=== PATIENT | female | born 1975 | race Caucasian/White ===

== ENCOUNTER 2019-01-14 09:39 | Day surgery (SDC) | payer OTHER ==
[2019-01-11 14:46] VITALS: BMI 35.0
--- NOTE | 2019-01-14 10:35 | HP ---
Admitting History and Physical - Admission Chief Complaint: Retained IUD History of Present Illness: 43yo P3 here for removal of IUD after two unsuccessful removal attempts in the office last week. Patient presented with pelvic pain and ultrasound revealed a IUD in improper position. Desired removal of IUD, however, strings frayed and broke during initial attempt. Desires replacement of another IUD in the future History Source: Patient Limitations to Obtaining History: No Limitations - Past Medical History [employer]: No: Alzheimer's, CVA, Dementia, Migraine, Multiple Sclerosis, Peripheral Neuropathy, Parkinson's, Seizure, Syncope, TIA, Vertigo, Other Cardiovascular: No: AFIB, Aneurysm, Aortic Insufficiency, Aortic Stenosis, CAD, CHF, Deep Vein Thrombosis, HTN, Hyperlipdemia, [place], Mitral Insufficiency, Mitral Stenosis, Murmur, Pulmonary Hypertension, Other Pulmonary: Yes: Asthma (rx inhaler. early pregn frequent episodes) Gastrointestinal: Yes: Constipation ...LMP: 12/21/18 ...: No ...Para: 3 Heme/Onc: No: Anemia, B12 Deficiency, Bleeding Disorder, Cancer, Current Chemotherapy, Current Radiation Therapy, Hemochromatosis, Hypercoaguable State, Myeloproliferative Synd, Sickle Cell Disease, Sickle Cell Trait, Thrombocytopenia, Other Psych: Yes: Anxiety Endocrine: Yes: Hyperthyroidism - Past Surgical History Past Surgical History: Yes: Cholecystectomy (2 yrs ago) Additional Past Surgical History: Abdominoplasty, Breast lift - Smoking History Smoking history: Never smoked Have you smoked in the past 12 months: No - Alcohol/Substance Use Hx Alcohol Use: Yes (occas) History of Substance Use: reports: Marijuana - Social History Usual Living Arrangement: Yes: With Spouse Do you think of yourself as: Straight/Heterosexual ADL: Independent History of Recent Travel: No Home Medications - Allergies Allergies/Adverse Reactions: Allergies Allergy/AdvReac Type Severity Reaction Status Date / Time morphine AdvReac Severe "throat Verified 01/14/19 10:12 closes" Penicillins AdvReac Severe "convulsion Verified 01/14/19 10:12 s" - Home Medications Home Medications: Ambulatory Orders Albuterol Sulfate Inhaler - [Ventolin Hfa Inhaler -] 2 inh PO Q4H PRN 05/11/15 EPINEPHrine (EPIPEN JR 0.15MG) [Epipen Jr 0.15MG -] 0.15 mg IM ASDIR 05/11/15 Diphenhydramine HCl [Benadryl -] 25 mg PO PRN PRN 01/11/19 Ergocalciferol (Vitamin D2) [Vitamin D2] 50,000 unit PO WEEKLY 01/11/19 Loratadine [Claritin] 10 mg PO DAILY 01/11/19 Review of Systems - Review of Systems Constitutional: denies: No Symptoms, Chills, Diaphoresis, Fever, Lethargy, Loss of Appetite, Malaise, Night Sweats, Unintentional Wgt. Loss, Weakness, Other Cardiovascular: denies: No Symptoms, Chest Pain, Edema, Palpitations, Shortness of Breath, Other Respiratory: denies: No Symptoms, Cough, Exercise Intolerance, Hemoptysis, Orthopnea, PND, Snoring, SOB, SOB on Exertion, Wheezing, Other Physical Examination Vital Signs: Vital Signs Temperature 98.7 F 01/14/19 10:26 Pulse Rate 83 01/14/19 10:26 Respiratory Rate 18 01/14/19 10:26 Blood Pressure 114/76 01/14/19 10:26 O2 Sat by Pulse Oximetry (%) Constitutional: Yes: Well Nourished Cardiovascular: Yes: WNL Respiratory: Yes: WNL, Regular, CTA Bilaterally Gastrointestinal: Yes: WNL, Normal Bowel Sounds Assessment/Plan 43yo multip here for removal of IUD, under hysteroscopy guidance NPO, IVF SCDs Risk of procedure reviewed including bleeding, infection, uterine perforation. All questions answered. Will RTO in 1-2 weeks for IUD reinsertion Josiane Avery MD
[2019-01-14] MEDS ORDERED: MIDAZOLAM HCL 2 MG/2 ML SINGLE DOSE VIAL ONE ×2 (11:51)
[2019-01-14] MEDS ORDERED: PROPOFOL 20 ML ONE (11:51)
[2019-01-14] MEDS ORDERED: SUCCINYLCHOLINE CHLORIDE 200 MG/10 ML SYRINGE ONE (11:51)
[2019-01-14] MEDS ORDERED: ACETAMINOPHEN INJECTION 100 ML IVPB ONE (12:46)
[2019-01-14] MEDS ORDERED: PROMETHAZINE HCL 25 MG/1 ML VIAL IVPUSH PRN (12:47)
[2019-01-14] MEDS ORDERED: ONDANSETRON 4 MG/2 ML VIAL IVPUSH PRN (12:47)
[2019-01-14] MEDS ORDERED: oxyCODONE HCL 5 MG TABLET PO PRN (12:47)
[2019-01-14] MEDS ORDERED: ACETAMINOPHEN 1000 MG/100 ML VIAL (NON FORMULARY) IVPB ONE (12:48)
--- NOTE | 2019-01-14 12:48 | OP ---
Operative Note - Note: Operative Date: 01/14/19 Pre-Operative Diagnosis: Pelvic pain, Retained IUD Operation: Diagnostic Hysteroscopy, Removal of IUD Findings: Embedded Paragard IUD in the cervical canal, no intrauterine involvement Post-Operative Diagnosis: Same as Pre-op Surgeon: Stephanie Avery Anesthesia: MAC Specimens Removed: Paragard IUD Estimated Blood Loss (mls): 25 Operative Report Dictated: Yes
[2019-01-14] MEDS ORDERED: LACTATED RINGERS SOLUTION 1,000 ML IV SCH (13:00)
[2019-01-14 13:52] VITALS: TEMP 97.8
--- NOTE | 2019-01-14 14:19 | OP ---
DATE OF OPERATION: 01/14/2019 PREOPERATIVE DIAGNOSES: Pelvic pain, retained intrauterine device. POSTOPERATIVE DIAGNOSES: Pelvic pain, retained intrauterine device. PROCEDURE: Diagnostic hysteroscopy, removal of IUD. ANESTHESIA: MAC. IV FLUIDS: 400. ESTIMATED BLOOD LOSS: 25. SURGEON: Stephanie Avery MD FINDINGS: Imbedded ParaGard IUD in the patient's cervical canal with no intrauterine involvement. COMPLICATIONS: None. CONDITION: Stable to recovery room. NATURE OF PROCEDURE: After the appropriate consents were signed, patient was taken to the operating room. MAC anesthesia was administered. She was placed in dorsal lithotomy position. The surgical field was prepped and draped in the normal sterile fashion. A timeout was performed, confirming correct patient and procedure. A sterile speculum was inserted into the patient's vagina, with good visualization of the cervix. The anterior lip of the cervix was grasped with a single-tooth tenaculum. The cervix was then dilated with the Franklin dilators up to 18 to accommodate a diagnostic hysteroscope, which was introduced under fluid distention within the cervical canal anteriorly. The ParaGard intrauterine device was noted to be found with the arms noted to be at the end of the cervical canal. No intrauterine involvement was noted with the device. The hysteroscope was then removed. The cervix was then dilated up to 25 to accommodate polyp forceps, which were introduced. After several attempts, no device was grasped and removed. The hysteroscope was then reintroduced to confirm that the device had not moved, was still in the same position as when initially seen. The hysteroscope was then removed. Curettage was then done gently, which yielded expulsion of part of the device through the cervical canal to be visualized. Using a Alyson clamp, the device was then grasped and removed and inspected, noted to be removed in its entirety with both arms present. The single-tooth tenaculum was then removed. Pressure was held on the anterior lip of the cervix to achieve hemostasis at the bite sites. The speculum was then removed. All sponge and lap counts were correct x2. Patient was taken from the operating room to the recovery area in stable condition. MD RICARDO STOREY/[id number]
[2019-01-14 15:21] VITALS: BP 112/70; PULSE 76
--- NOTE | 2019-01-15 18:14 | PATH ---
Surgical Pathology Report Patient Name: FAWN PIMENTEL Med. Rec. #: [id number] /Age/Gender: 1975 (Age: 43) / F Account: [id number] Location: [facility] Taken: 01/14/2019 Received: 01/14/2019 Reported: 01/15/2019 Physicians: Stephanie Avery Specimen(s) Received PARAGARD IUD Clinical History 43 year old female with pelvic pain, retained IUD Final Diagnosis PARAGARD IUD, REMOVAL: CONSISTENT WITH INTRAUTERINE DEVICE. GROSS EXAMINATION ONLY. Electronically Signed Alisa Mckenna M.D. Gross Description Received in a container labeled with "paragard IUD", is a T shaped intrauterine device. Gross examination only. JOSE/01/14/2019 rick/01/14/2019
== END 2019-01-14 15:20 | disposition home or self-care (01) ==
LOC: JASU-SURG 09:39
PROVIDERS: ATTEND Obstetrics & Gynecology
PROC: 0UC98ZZ Extirpation of Matter from Uterus, Via Natural or Artificial Opening Endoscopic (ICD-10-PCS; principal; 2019-01-14 11:00)
DX: T83.89XA Other specified complication of genitourinary prosthetic devices, implants and grafts, initial encounter (principal)
CPT/HCPCS: 84703; 88300-TC; 94760; J0131